=== PATIENT | female | born 1985 | race Caucasian/White ===

== ENCOUNTER 2018-02-19 21:34 | Emergency (ER) | payer OTHER ==
[2018-02-19 21:43] VITALS: BP 134/88; PULSE 104; TEMP 98.4; BMI 26.6
--- NOTE | 2018-02-19 21:44 | PDOC ---
Rapid Medical Evaluation Chief Complaint: Pain, Acute Time Seen by Provider: 02/19/18 21:37 Medical Evaluation: Allergies Allergy/AdvReac Type Severity Reaction Status Date / Time No Known Allergies Allergy Verified 01/01/14 22:39 02/19/18 21:38 s/p surgical 5 days ago c/o pain to the rectal area a andd vaginal bleeding x 2 days. tactile temp 1 day ago. obstetrician gynecologist today U/S normal as per patient. motrin at 3pm O: Patient alert ox3. + suprapubic tenderness A: pelvic pain P: UA , UCX, cbc, cmp. TVUS patient to the ER for further management of care. 02/19/18 21:44
[2018-02-19] MEDS ORDERED: traMADol HCL 50 MG TABLET PO ONE (23:01)
[2018-02-19 23:31] LABS: BASO % 0.6 % (0-2.0); HEMOGLOBIN 11.7 GM/dL (10.7-15.3); LYMPH % 47.7 % (8-40); MCHC 34.5 g/dl (32.0-36.0); MEAN PLT VOLUME 8.1 fl (7.5-11.1); MONO % 14.4 % (3.8-10.2); NEUT % 36.3 % (42.8-82.8); PLATELET COUNT 183 K/MM3 (134-434); RDW 13.4 % (11.6-15.6)
[2018-02-19] MEDS ORDERED: IBUPROFEN 400 MG TABLET (FP) PO ONE (23:41)
[2018-02-19] MEDS ORDERED: IBUPROFEN 600 MG TABLET (FP) PO ONE (23:41)
--- NOTE | 2018-02-19 23:46 | PDOC ---
History of Present Illness - General History Source: Patient Exam Limitations: No Limitations - History of Present Illness Initial Comments: 02/19/18 23:56 The patient is a 32 year old female with past medical history of chlamydia presents to the emergency department complaining of lower abdominal pain. The patient is s/p surgical 4 days ago, post procedure the patient noticed vaginal bleeding, which [facility]. The patient reports on Saturday a new onset of mild cramp manifested which carried onto today. The patient reports on Saturday the pain intensified with quality similar to gas like pain. The patient reports she was at work without any relief from pervious symptoms when she experienced a sharp intense pain to her rectum. The patient reports going to the restroom and having a bowel movement and passing gas with mild relief before the symptoms manifested again. The patient states on Saturday she noticed vaginal bleeding and called [facility] who states it was common due to the procedure she underwent. Today, the patient experienced an intense pain with no relief, she was unable to sit or walk. The patient states going to an urgent care who states she might have an infection and referred her to see her [employer]. The patient reports going [facility] after work where they did work up stating no infection but there is blood and stool that need to pass. The patient states currently she had mild vaginal bleeding with minimal pain. The patient reports history of intermittent headaches, with an episode yesterday with severity worse than previous episodes. The patient reports taking an Motrin @1 with relief. The patient reports she experienced flu like symptoms yesterday, with temp of 99.9, body ache and night sweating, which resolved on its own. Denies any dysuria. Last BM: Hard stool passed earlier today. Allergies: None reported <Elisabeth Javed - Last Filed: 02/20/18 00:27> <Fitz Torres - Last Filed: 02/20/18 00:31> - General Chief Complaint: Pain, Acute Stated Complaint: ABD PAIN Time Seen by Provider: 02/19/18 21:37 Past History <Elisabeth Javed - Last Filed: 02/20/18 00:27> - Surgical History Abdominal Surgery: Yes () - Reproductive History (#): 3 Therapeutic (s) & number: Yes (2) - Immunization History Immunization Up to Date: Yes - Suicide/Smoking/Psychosocial Hx Smoking Status: No Smoking History: Never smoked Have you smoked in the past 12 months: No Number of Cigarettes Smoked Daily: 0 Information on smoking cessation initiated: No Hx Alcohol Use: No Drug/Substance Use Hx: No Substance Use Type: None <BrianSaydaFitz - Last Filed: 02/20/18 00:31> - Past Medical History Allergies/Adverse Reactions: Allergies Allergy/AdvReac Type Severity Reaction Status Date / Time No Known Allergies Allergy Verified 02/19/18 23:02 Home Medications: Ambulatory Orders Pnv with Ca,No.71/Iron/FA [ Vitamin Tablet] 1 each PO DAILY 10/05/13 Abd/GI Specific PMHX - Complaint Specific PMHX Colitis: No Diverticulitis: No Gall Bladder Disease: No GERD: No Hepatitis: No Irritable Bowel Synd (IBS): No Pancreatitis: No GI Ulcer Disease: No <Fitz Torres - Last Filed: 02/20/18 00:31> Review of Systems - Review of Systems Able to Perform ROS?: Yes Comments:: 02/19/18 23:56 CONSTITUTIONAL: (+) headache. No fever, no chills, no fatigue EYES: No visual changes ENT: No ear pain, no sore throat CARDIOVASCULAR: No chest pain, no palpitations RESPIRATORY: No cough, no SOB GI: No abdominal pain, no nausea, no vomiting, no constipation, no diarrhea GENITOURINARY: (+) Mild vaginal bleeding. No dysuria, no frequency, no hematuria MUSKULOSKELETAL: (+) lower abdominal pain. No backpain, no joint pain, no myalgias SKIN: No rash NEURO: No headache <Elisabeth Javed - Last Filed: 02/20/18 00:27> *Physical Exam - Vital Signs Last Vital Signs Temp Pulse Resp BP Pulse Ox 98.4 F 104 H 19 134/88 100 02/19/18 21:40 02/19/18 21:40 02/19/18 21:40 02/19/18 21:40 02/19/18 21:40 - Physical Exam Comments: 02/19/18 23:56 CONSTITUTIONAL: Well-appearing; well-nourished; in no apparent distress HEAD: Normocephalic; atraumatic EYES: PERRL; EOM intact ENMT: External appears normal; normal oropharynx NECK: Supple; non-tender; no cervical lymphadenopathy CARD: Normal S1, S2; no murmurs, rubs, or gallops RESP: Normal chest excursion with respiration; breath sounds clear and equal bilaterally; no wheezes, rhonchi, or rales ABD: (+) Supra pubic abdominal pain. Soft, non-distended; no palpable organomegaly, no palpable hernias EXT: Normal ROM in all four extremities; non-tender to palpation; distal pulses intact SKIN: Warm, dry, no rash NEURO: No focal neurological deficiencies. <Elisabeth Javed - Last Filed: 02/20/18 00:27> - Vital Signs Last Vital Signs Temp Pulse Resp BP Pulse Ox 98.4 F 104 H 19 134/88 100 02/19/18 21:40 02/19/18 21:40 02/19/18 21:40 02/19/18 21:40 02/19/18 21:40 <Fitz Torres - Last Filed: 02/20/18 00:31> ED Treatment Course - LABORATORY CBC & Chemistry Diagram: 02/19/18 23:18 02/19/18 23:18 - ADDITIONAL ORDERS Additional order review: Laboratory Results 02/19/18 23:23 Urine Color Yellow Urine Appearance Slcloudy Urine pH 5.0 D Ur Specific [place] 1.025 Urine Protein Negative Urine Glucose (UA) Negative Urine Ketones 2+ H Urine Blood Negative Urine Nitrite Negative Urine Bilirubin Negative Urine Urobilinogen Negative Ur Leukocyte Esterase Negative 02/19/18 23:18 RBC 3.90 MCV 87.0 MCHC 34.5 RDW 13.4 MPV 8.1 Neutrophils % 36.3 L Lymphocytes % 47.7 H Monocytes % 14.4 H Eosinophils % 1.0 Basophils % 0.6 - Medications Given in the ED: ED Medications Discontinued Medications Generic Name Dose Route Start Last Admin Trade Name Freq PRN Reason Stop Dose Admin Ibuprofen 600 mg 02/19/18 23:41 02/19/18 23:50 Motrin - PO 02/19/18 23:42 600 mg ONCE ONE Administration Tramadol HCl 50 mg 02/19/18 23:01 02/19/18 23:24 Ultram - PO 02/19/18 23:02 Not Given ONCE ONE <Elisabeth Javed - Last Filed: 02/20/18 00:27> - LABORATORY CBC & Chemistry Diagram: 02/19/18 23:18 02/19/18 23:18 - ADDITIONAL ORDERS Additional order review: 02/19/18 23:18 RBC 3.90 MCV 87.0 MCHC 34.5 RDW 13.4 MPV 8.1 Neutrophils % 36.3 L Lymphocytes % 47.7 H Monocytes % 14.4 H Eosinophils % 1.0 Basophils % 0.6 - RADIOLOGY Radiology Studies Ordered: Category Date Time Status ABDOMEN-KUB FLAT PLATE [RAD] Stat Radiology 02/19/18 23:40 Ordered - Medications Given in the ED: ED Medications Discontinued Medications Generic Name Dose Route Start Last Admin Trade Name Freq PRN Reason Stop Dose Admin Tramadol HCl 50 mg 02/19/18 23:01 02/19/18 23:24 Ultram - PO 02/19/18 23:02 Not Given ONCE ONE <Fitz Torres - Last Filed: 02/20/18 00:31> Medical Decision Making - Medical Decision Making 02/20/18 00:28 Patient is well-appearing 32-year-old female, status post D and see 5 days previously presents with lower abdominal pain, intermittent vaginal bleeding, hard stools and rectal pain. Patient afebrile and nontoxic appearing with minimal suprapubic abdominal tenderness to deep palpation only. Transvaginal ultrasound shows no evidence of retained products of conception, thickened endometrium is noted. KUB reveals large amount of retained stool throughout the colon. CBC and CMP within normal limit. Urinalysis reveals no evidence of pyuria. I do not suspect endometritis or infected products of conception. I do not suspect perforation. Patient's symptoms were relieved by ibuprofen. Patient also reported a chronic intermittent headache that is successfully treated with ibuprofen as well. no Focal neurological deficits are present. Will discharge with [employer] follow- up in 24 hours. <Fitz Torres - Last Filed: 02/20/18 00:31> *DC/Admit/Observation/Transfer <Elisabeth Javed - Last Filed: 02/20/18 00:27> - Attestations Physician Attestion: 02/20/18 00:28 The documentation was prepared by the scribe under my direct supervision. I have reviewed the documentation which correctly represents the findings, medical decision-making and critical action taken by me. <Brian,Fitz - Last Filed: 02/20/18 00:31> Diagnosis at time of Disposition: Abdominal pain Qualifiers: Abdominal location: lower abdomen, unspecified Qualified Code(s): R10.30 - Lower abdominal pain, unspecified - Discharge Dispostion Disposition: HOME Condition at time of disposition: Stable - Referrals Referrals: Marcelina Sewell MD [Primary Care Provider] - Roberth Solis MD [Staff Physician] - - Patient Instructions Printed Discharge Instructions: DI for Abdominal Pain-Adult - Post Discharge Activity
[2018-02-19 23:51] LABS: URINE APPEARANCE SLCLOUDY; URINE BILIRUBIN NEGATIVE (<2.0 mg/dL); URINE BLOOD NEGATIVE (NEGATIVE); URINE COLOR YELLOW; URINE GLUCOSE (UA) NEGATIVE (NEGATIVE); URINE KETONE 2+ (NEGATIVE); URINE LEUK ESTERASE NEGATIVE (NEGATIVE); URINE NITRITE NEGATIVE (NEGATIVE); URINE PROTEIN NEGATIVE (NEGATIVE); URINE UROBILINOGEN NEGATIVE mg/dL (0.2-1.0)
[2018-02-19 23:55] LABS: ALBUMIN 3.8 g/dl (3.4-5.0); ANION GAP 10 (8-16); BILIRUBIN,TOTAL 0.3 mg/dL (0.2-1.0); BLOOD UREA NITROGEN 8 mg/dL (7-18); CALCIUM 8.7 mg/dL (8.5-10.1); CHLORIDE 107 mmol/L (98-107); CO2 24 mmol/L (21-32); CREATININE 0.6 mg/dL (0.55-1.02); GLUCOSE,RANDOM 82 mg/dL (74-106); POTASSIUM 3.6 mmol/L (3.5-5.1); SGOT/AST 20 U/L (15-37); SGPT/ALT 19 U/L (12-78); SODIUM 141 mmol/L (136-145); TOT PROT 7.6 g/dl (6.4-8.2)
[2018-02-19 23:56] LABS: ALK PHOS 49 U/L (45-117)
== END 2018-02-20 01:03 | disposition home or self-care (01) ==
LOC: JER 21:34
DX: R10.30 Lower abdominal pain, unspecified (principal)
CPT/HCPCS: 36415; 74018-TC-FY; 76830-TC; 80053; 81003; 85025; 87086; 99281-25